=== PATIENT | female | born 1945 ===

== ENCOUNTER 2016-09-13 13:58 | Emergency (ER) | payer MEDICARE, MEDICAID ==
[~2016-09-13] VITALS: Ht 162.6 cm; Wt 70.3 kg
--- NOTE | 2016-09-13 14:22 | NUR ---
DR SANTOS AT THE BEDSIDE FOR EVAL AND EXAM.
[2016-09-13 14:31] VITALS: BP 134/76
--- NOTE | 2016-09-13 14:32 | NUR ---
Patient discharged to home in stable conditon. Written and verbal after care instructions given. Patient verbalizes understanding of instructions.
== END 2016-09-13 14:34 | disposition home or self-care (01) ==
LOC: ER 14:10
DX: H60.92 Unspecified otitis externa, left ear (principal); E78.00 Pure hypercholesterolemia, unspecified; I10 Essential (primary) hypertension
CPT/HCPCS: A4663